=== PATIENT | female | born 1975 | race Two or more races ===

== ENCOUNTER 2019-09-22 08:33 | Outpatient (CLI) | payer BC ==
[2019-09-22 09:36] LABS: ALBUMIN 3.9 g/dL (3.4-5.0); BILIRUBIN,TOTAL 0.6 mg/dL (0.2-1.0); CALCIUM, SERUM 8.8 mg/dL (8.5-10.1); CREATININE 0.6 mg/dL (0.6-1.3); POTASSIUM 3.9 mmol/L (3.5-5.1); TOTAL PROTEIN, SERUM 7.8 g/dL (6.4-8.2)
== END 2019-09-22 23:59 | disposition home or self-care (01) ==
LOC: LAB 08:33
PROVIDERS: ATTEND Family Medicine
DX: R10.30 Lower abdominal pain, unspecified (principal)
CPT/HCPCS: 36415; 80053-TC

== ENCOUNTER 2019-09-26 09:55 | Outpatient (CLI) | payer BC ==
[2019-09-26] MEDS ORDERED: IV NS 0.9% 250 ML IV ONE (11:00)
[2019-09-26] MEDS ORDERED: IOHEXOL-300 100 ML VIAL IV ONE (11:00)
[2019-09-26] MEDS ORDERED: CT SWABBABLE VALVE TRANS SET 1 EA INFUS.SET MC ONE (11:00)
== END 2019-09-26 23:59 | disposition home or self-care (01) ==
LOC: CT 09:55
PROVIDERS: ATTEND Family Medicine
DX: R10.30 Lower abdominal pain, unspecified (principal)
CPT/HCPCS: 74177; J7050; Q9967

== ENCOUNTER 2019-10-07 06:38 | Emergency (ER) | payer BC, OTHER ==
[~2019-10-07] VITALS: Ht 160 cm; Wt 65.8 kg
[2019-10-07 06:38] VITALS: BP 130/68
--- NOTE | 2019-10-07 06:43 | NUR ---
PT CAME TO ER BED 8 C/O BUMPS ON SKIN. PATIENT HAS CRUSTED BUMPS ON LEFT FOREARM, LEFT THIGH, RIGHT FOREARM, AND LEFT BUTTOCKS. PATIENT STATES THAT SHE HAS SHINGLES. PATIENT STATES THAT THERE IS MORE PAIN WHEN IT BLISTERS. CURRENTLY ONLY THE LEFT FOREARM HAS ONE BLISTERED BUMP. AWAITING MD BOYD.
--- NOTE | 2019-10-07 07:38 | NUR ---
Patient discharged to home in stable condition. Written and verbal after care instructions given. Patient verbalizes understanding of instruction. Pt ambulatory with a steady gait
== END 2019-10-07 07:40 | disposition home or self-care (01) ==
LOC: ER 06:39
DX: R21 Rash and other nonspecific skin eruption (principal); Z88.0 Allergy status to penicillin

== ENCOUNTER 2020-10-15 14:07 | Outpatient (CLI) | payer BC, OTHER | END 2020-10-15 23:59 | disposition home or self-care (01) | LOC: RAD 14:07 | PROVIDERS: ATTEND Family Medicine | DX: R07.9 Chest pain, unspecified (principal) | CPT/HCPCS: 71046 ==

== ENCOUNTER 2020-11-04 07:42 | Outpatient (CLI) | payer BC, OTHER ==
[2020-11-04 09:36] LABS: BASOPHILS # (AUTO) 0.1 /CMM (0.0-0.2); BASOPHILS % (AUTO) 0.9 % (0.0-2.0); EOSINOPHILS % (AUTO) 1.8 % (0.0-6.0); HEMATOCRIT 43 % (33-45); HEMOGLOBIN 14.5 g/dL (11.5-14.8); LYMPHOCYTES # (AUTO) 3.8 /CMM (0.8-4.8); LYMPHOCYTES % (AUTO) 40.4 % (20.0-44.0); MEAN CORPUSCULAR HGB CONC 34 g/dl (31.0-36.0); MEAN CORPUSCULAR VOLUME 87 fL (82-100); MONOCYTES # (AUTO) 0.5 /CMM (0.1-1.30); MONOCYTES % (AUTO) 5.8 % (2.0-12.0); NEUTROPHILS # (AUTO) 4.8 /CMM (1.8-8.9); NEUTROPHILS % (AUTO) 51.1 % (43.0-81.0); PLATELET COUNT (AUTO) 269 /CMM (150-450); RED BLOOD CELL COUNT(AUTO) 4.98 MIL/uL (4.0-5.2); WHITE BLOOD COUNT (AUTO) 9.4 K/uL (4.3-11.0)
[2020-11-04 10:06] LABS: ALBUMIN 4.3 g/dL (3.4-5.0); BILIRUBIN,TOTAL 0.4 mg/dL (0.2-1.0); CALCIUM, SERUM 9.4 mg/dL (8.5-10.1); CREATININE 0.7 mg/dL (0.6-1.3); POTASSIUM 3.7 mmol/L (3.5-5.1); TOTAL PROTEIN, SERUM 8.3 g/dL (6.4-8.2)
[2020-11-04 10:16] LABS: THYROID STIMULATING HORMONE 2.111 uIU/mL (0.358-3.74)
[2020-11-06 17:06] LABS: H. PYLORI AB IgA 11.1 units (0.0-8.9)
== END 2020-11-04 23:59 | disposition home or self-care (01) ==
LOC: LAB 07:42
PROVIDERS: ATTEND Family Medicine
DX: R10.9 Unspecified abdominal pain (principal); R07.9 Chest pain, unspecified
CPT/HCPCS: 36415; 80053-TC; 80061-TC; 84439-TC; 84443-TC; 85025-TC; 86677

== ENCOUNTER 2021-01-06 12:20 | Outpatient (CLI) | payer BC, OTHER ==
[2021-01-06 13:56] LABS: CHOLESTEROL 226 mg/dL (<200); HDL CHOLESTEROL 60 mg/dL (40-60); LDL 136 mg/dL (0-99); TRIGLYCERIDES 125 mg/dL (30-150)
== END 2021-01-06 23:59 | disposition home or self-care (01) ==
LOC: LAB 12:20
PROVIDERS: ATTEND Family Medicine
DX: R07.9 Chest pain, unspecified (principal)
CPT/HCPCS: 36415; 80061-TC